=== PATIENT | male | born 1950 | race African-American/Black ===

== ENCOUNTER 2023-10-24 19:56 | Emergency (ER) | payer SELFPAY ==
--- NOTE | ~2023-10-24 | XR_ITS ---
EXAMINATION: XR KNEE, RIGHT CLINICAL INFORMATION: Pain status-post injury. COMPARISON: None TECHNIQUE: AP, lateral, and both oblique views of the right knee. FINDINGS: Bony alignment and mineralization are normal. The lateral, medial and patellofemoral joint space compartments are well-maintained. There is mild peripheral osteophyte formation of the superior and inferior articular surfaces of the patella. No fracture, dislocation or significant joint effusion is seen. There is no foreign body. There are diffuse atherosclerotic calcifications. XR/XR ankle LT min 3V IMPRESSION: 1. 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 2. No right knee fracture, dislocation or significant joint effusion is seen. EXAMINATION: XR ANKLE, LEFT CLINICAL INFORMATION: Pain status-post injury. COMPARISON: None available. TECHNIQUE: AP, lateral, and mortise views of the left ankle. FINDINGS: There is bony demineralization. The ankle mortise is intact. No fracture, dislocation or left ankle joint effusion is seen. Boehler's angle is normal. There is a minimal posterior calcaneal spur. There has been a prior transmetatarsal amputation. No focal soft tissue swelling, gas or foreign body is seen. IMPRESSION: 1. No fracture, dislocation or left ankle joint effusion is seen. 2. There has been a prior transmetatarsal amputation. 3. No soft tissue swelling, gas or foreign body is seen.
--- NOTE | ~2023-10-24 | XR_ITS ---
EXAMINATION: XR KNEE, RIGHT CLINICAL INFORMATION: Pain status-post injury. COMPARISON: None TECHNIQUE: AP, lateral, and both oblique views of the right knee. FINDINGS: Bony alignment and mineralization are normal. The lateral, medial and patellofemoral joint space compartments are well-maintained. There is mild peripheral osteophyte formation of the superior and inferior articular surfaces of the patella. No fracture, dislocation or significant joint effusion is seen. There is no foreign body. There are diffuse atherosclerotic calcifications. XR/XR knee RT 3V IMPRESSION: 1. 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 2. No right knee fracture, dislocation or significant joint effusion is seen. EXAMINATION: XR ANKLE, LEFT CLINICAL INFORMATION: Pain status-post injury. COMPARISON: None available. TECHNIQUE: AP, lateral, and mortise views of the left ankle. FINDINGS: There is bony demineralization. The ankle mortise is intact. No fracture, dislocation or left ankle joint effusion is seen. Boehler's angle is normal. There is a minimal posterior calcaneal spur. There has been a prior transmetatarsal amputation. No focal soft tissue swelling, gas or foreign body is seen. IMPRESSION: 1. No fracture, dislocation or left ankle joint effusion is seen. 2. There has been a prior transmetatarsal amputation. 3. No soft tissue swelling, gas or foreign body is seen.
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
[2023-10-24 20:23] VITALS: BP 134/84; PULSE 68; RESP 16; TEMP 36.8; O2SAT 99; BMI 24.6
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
[2023-10-25 00:22] VITALS: BP 164/72; PULSE 69; RESP 18; TEMP 36.6; O2SAT 98
[2023-10-25 02:12] VITALS: BP 174/91; PULSE 61; RESP 16; TEMP 36.4; O2SAT 97
[2023-10-25] MEDS: Acetaminophen 325 MG TABLET 650 MG PO (02:35)
[2023-10-25 02:37] VITALS: BP 174/91; PULSE 61; RESP 16; TEMP 36.4; O2SAT 97
== END 2023-10-25 02:46 | disposition home or self-care (01) ==
PROVIDERS: Emergency Provider Emergency Medicine
DX: S13.4XXA Sprain of ligaments of cervical spine, initial encounter (principal); S70.11XA Contusion of right thigh, initial encounter; R07.81 Pleurodynia; M25.561 Pain in right knee; V43.52XA Car driver injured in collision with other type car in traffic accident, initial encounter; Y93.89 Activity, other specified; Y92.410 Unspecified street and highway as the place of occurrence of the external cause; Y99.8 Other external cause status
CPT/HCPCS: 71111; 73562; 73610; 99283

== ENCOUNTER 2023-10-26 18:11 | Emergency (ER) | payer SELFPAY ==
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
[2023-10-26 18:32] VITALS: BP 116/77; PULSE 90; RESP 18; TEMP 37; O2SAT 100; BMI 24.7
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
[2023-10-26 19:46] LABS: MANUAL DIFF FLAG NO
[2023-10-26 19:52] LABS: Basophils Absolute Auto 0.1 X10*3/uL (0.0-0.2); Basophils Percent Auto 0.4 % (0-2); Eosinophils Percent Auto 0.2 % (0-4); Hematocrit 26.4 % (42.0-52.0); Hemoglobin 8.9 g/dl (14.0-18.0); Imm Gran Abs Auto 0.06 X10*3/uL (0.00-0.03); Imm Gran Pct Auto 0.5 % (0.0-0.4); Lymphocytes Absolute Auto 2.9 X10*3/uL (1.2-4.9); Lymphocytes Percent Auto 23.7 % (20-40); Mean Corpuscular HGB Conc 33.7 g/dl (31.0-36.0); Mean Corpuscular Hemoglobin 33.2 pg (27.0-33.0); Mean Corpuscular Volume 98.5 fL (80.0-98.0); Mean Platelet Volume 9.7 fL (9.4-12.4); Monocytes Absolute Auto 0.7 X10*3/uL (0.1-1.2); Monocytes Percent Auto 5.5 % (2-11); Neutrophils Absolute Auto 8.6 x10*3/uL (2.0-8.3); Neutrophils Percent Auto 69.7 % (45-73); Platelet Count 230 X10*3/uL (160-400); Red Blood Count 2.68 X10*6/uL (4.60-5.80); Red Cell Distribution Width 14.5 % (11.0-16.0); White Blood Count 12.4 X10*3/uL (4.8-10.8)
[2023-10-26 20:01] LABS: INTERNATIONAL NORM RATIO 1.1 (0.9-1.1); Prothrombin Time 13.2 SEC (11.1-13.3)
--- NOTE | 2023-10-26 20:13 | PC.NURSE ---
pt not in waiting room not in ct, unable to find pt to bring in. pt was told by tech in triage to stay and is looking for pt.
[2023-10-26 20:15] LABS: Alanine Aminotransferase 14 U/L (0-40); Alkaline Phosphatase 48 U/L (39-117); Anion Gap 14 (12-20); Aspartate Amino Transferase 16 U/L (5-37); Bilirubin Total 0.3 mg/dL (0.0-1.0); Blood Urea Nitrogen 25 mg/dL (9-16); Carbon Dioxide 21 mmol/L (22-29); Chloride 113 mmol/L (96-108); Creatinine Clr Calc Pharmacy 54.4; Estimated Glomerular Filt Rate 60; Glucose Random 157 mg/dL (60-115); Potassium 4.6 mmol/L (3.3-5.1); Sodium 143 mmol/L (135-145); Total Protein 6.4 g/dL (6.5-8.0)
--- NOTE | 2023-10-26 20:24 | PC.NURSE ---
pt has been going in and out of the building. pt is now in waiting room
[2023-10-26 21:27] VITALS: BP 117/69; PULSE 80; RESP 16; TEMP 37; O2SAT 97
[2023-10-26 21:42] LABS: OBS Int Ctl Valid YES; OBS1 POSITIVE (NEGATIVE)
[2023-10-26] MEDS: iohexoL 350 MG/ML 100 ML INFUS..BTL IV (22:16)
[2023-10-26 23:54] VITALS: BP 102/74; BP 125/83; PULSE 81; PULSE 93; RESP 16; RESP 17; TEMP 36.8; TEMP 37.1; O2SAT 95; O2SAT 98
[2023-10-27 01:43] VITALS: BP 119/70; PULSE 90
[2023-10-27 01:44] VITALS: BP 128/58; PULSE 101
[2023-10-27 01:45] VITALS: BP 130/82; PULSE 110
[2023-10-27 01:55] VITALS: BP 130/82; PULSE 95; RESP 17; TEMP 36.2; O2SAT 95
[2023-10-27 02:33] VITALS: BP 130/82; PULSE 95; RESP 17; TEMP 36.2; O2SAT 95
== END 2023-10-27 02:34 | disposition home or self-care (01) ==
PROVIDERS: Physician Assistant; Emergency Provider Emergency Medicine Emergency Medical Services; PCP Student in an Organized Health Care Education/Training Program
DX: S09.90XA Unspecified injury of head, initial encounter (principal); K92.1 Melena; K64.9 Unspecified hemorrhoids; D64.9 Anemia, unspecified; M54.2 Cervicalgia; R51.9 Headache, unspecified; R07.89 Other chest pain; R10.2 Pelvic and perineal pain; V43.52XA Car driver injured in collision with other type car in traffic accident, initial encounter; Y93.89 Activity, other specified; Y92.488 Other paved roadways as the place of occurrence of the external cause; Y99.8 Other external cause status
CPT/HCPCS: 36415; 70450; 71260; 72125; 74178; 80053; 82272; 85025; 85610; 85730; 99284; Q9967